=== PATIENT | female | born 1980 | race Caucasian/White ===

== ENCOUNTER → 2020-04-20 10:01 | Outpatient (BNVA) | payer OTHER, SELFPAY | PROVIDERS: PCP Family Medicine; Visit Provider Nurse Practitioner | DX: G62.9 Polyneuropathy, unspecified (principal); R51.9 Headache, unspecified; R29.818 Other symptoms and signs involving the nervous system | CPT/HCPCS: 99214 ==

== ENCOUNTER 2020-05-18 09:52 | Outpatient (CLI) | payer OTHER, SELFPAY ==
--- NOTE | 2020-05-18 10:06 | MR_ITS ---
WS: [id number] MRI BRAIN WITH AND WITHOUT CONTRAST HISTORY: HEADACHE COMPARISON: None available. TECHNIQUE: Multiplanar imaging performed through the brain with MultiHance 15 ml's IV. Quality of this examination is significantly compromised by artifact from dental hardware. Diffusion sequence was significantly compromised and not submitted. No diffusion imaging is submitted . There is no evidence for hemorrhage. Curvilinear area of increased signal throughout the central br ain on the T1, T2 and FLAIR sequences from the hardware. There is no midline shift. No significant pr ior infarcts are identified. No mass effect. No susceptibility artifacts or prior lacunar infarcts. Ventricles and extra-axial spaces are normal. Limited evaluation of the clivus and pituitary gland. No abnormality detected in the posterior fossa. Postcontrast images are negative for masses or vascular malformations. Dural venous sinuses are normal. Paranasal sinuses: Obscured for the most part due to artifact from the hardware dental work. Mastoid air cells: Normal. Calvarium and scalp: Normal. MR/MR head wo/w con [id number] IMPRESSION: 1. Quality of this examination is significantly limited by artifact from the d ental hardware. 2. No abnormality is identified. There are significant portions of the brain w hich are limited.
[2020-05-18] MEDS: gadobenate dimeglumine 20 mL vial IV (14:23)
== END 2020-05-18 09:53 | disposition home or self-care (01) ==
LOC: RADWPI 09:57
PROVIDERS: PCP Family Medicine; Visit Provider Nurse Practitioner
DX: R51.9 Headache, unspecified (principal)
CPT/HCPCS: 70553; A9577